=== PATIENT | male | born 1980 | race Caucasian/White ===

== ENCOUNTER 2017-09-11 21:23 | Emergency (ER) | payer OTHER ==
--- NOTE | 2017-09-11 22:03 | ER ---
Nurse's Notes [facility] Name: Aime Robbins Age: 37 yrs Sex: Male : 1980 Arrival Date: 09/11/2017 Time: 21:23 Bed 30 Private MD: Diagnosis: Encounter for screening, unspecified Presentation: 09/11 21:29 Presenting complaint: Patient states: States waking up while sleeping, coughed and felt lp1 tightness to lower left side of back. Transition of care: patient was not received from another setting of care. Onset of symptoms was September 11, 2017 at 18:30. Care prior to arrival: None. 21:29 Method Of Arrival: Wheelchair lp1 21:29 Acuity: DADA 4 lp1 Historical: - Allergies: 21:31 No Known Allergies; lp1 - Home Meds: 21:31 lisinopril 20 mg Oral tab 1 tab once daily [Active]; hydrochlorothiazide 50 mg Oral tab lp1 1 tab 2 times per day [Active]; - PMHx: 21:31 Hypertension; lp1 - PSHx: 21:31 None; lp1 - Immunization history:: Adult Immunizations up to date. - Social history:: Smoking status: Patient uses tobacco products, smokes one-half pack cigarettes per day. Screenin:31 Abuse screen: Denies threats or abuse. Denies injuries from another. Nutritional lp1 screening: No deficits noted. Tuberculosis screening: No symptoms or risk factors identified. Fall Risk None identified. Assessment: 21:45 General: Appears uncomfortable, well groomed, well developed, well nourished, Behavior tl3 is calm, cooperative, appropriate for age. Pain: Complains of pain in left low back Pain currently is 10 out of 10 on a pain scale. Quality of pain is described as sharp. Neuro: Level of Consciousness is awake, alert, obeys commands, Oriented to person, place, time, situation, Appropriate for age. Cardiovascular: Heart tones S1 S2 present Capillary refill < 3 seconds in bilateral fingers. Respiratory: Airway is patent Trachea midline Respiratory effort is even, unlabored, Respiratory pattern is regular, symmetrical, Breath sounds are clear bilaterally. GI: No signs and/or symptoms were reported involving the gastrointestinal system. : No signs and/or symptoms were reported regarding the genitourinary system. EENT: No signs and/or symptoms were reported regarding the EENT system. Derm: No signs and/or symptoms reported regarding the dermatologic system. Musculoskeletal: No signs and/or symptoms reported regarding the musculoskeletal system. Vital Signs: 21:30 BP 158 / 117; Pulse 77; Resp 18; Temp 97.9(O); Pulse Ox 98% on R/A; Weight 154.22 kg; lp1 Height 6 ft. 3 in. (190.50 cm); Pain 9/10; 21:30 Body Mass Index 42.50 (154.22 kg, 190.50 cm) lp1 ED Course: 21:23 Patient arrived in ED. ds1 21:30 Triage completed. lp1 21:30 Arm band placed on right wrist. lp1 21:32 Charlotte Garcia RN is Primary Nurse. tl3 21:33 Jose Blake MD is Attending Physician. gs 21:45 Patient has correct armband on for positive identification. Bed in low position. Adult tl3 w/ patient. Warm blanket given. 21:45 No provider procedures requiring assistance completed. tl3 Administered Medications: No medications were administered Outcome: 22:02 Discharge ordered by . gs 22:12 Patient left the ED. tl3 Signatures: Jennifer Dodd ds1 Kasandra Yanez RN RN lp1 Jose Blake MD MD Charlotte Garcia RN RN tl3
--- NOTE | 2017-09-11 22:03 | EDPHYS ---
Physician Documentation [facility] Name: Aime Robbins Age: 37 yrs Sex: Male : 1980 Arrival Date: 09/11/2017 Time: 21:23 Bed 30 Private MD: ED Physician Jose Blake HPI: 09/11 21:59 This 37 yrs old Male presents to ER via Wheelchair with complaints of Back gs Pain. 21:59 The patient presents with pain that is acute. The symptoms are located in the left low gs back. Onset: The symptoms/episode began/occurred today. The pain does not radiate. Associated signs and symptoms: Pertinent negatives: abdominal pain, chest pain, constipation, dysuria, hematuria, incontinence, tingling, urinary retention. Modifying factors: the patient symptoms are aggravated by bending, movement. Severity of symptoms: At their worst the symptoms were moderate, in the emergency department the symptoms are unchanged. The patient has experienced similar episodes in the past, multiple times, and the symptoms today are exactly the same, last week went away, was told by pcp before to take antiinflammatories. Historical: - Allergies: 21:31 No Known Allergies; lp1 - Home Meds: 21:31 lisinopril 20 mg Oral tab 1 tab once daily [Active]; hydrochlorothiazide 50 mg Oral tab lp1 1 tab 2 times per day [Active]; - PMHx: 21:31 Hypertension; lp1 - PSHx: 21:31 None; lp1 - Immunization history:: Adult Immunizations up to date. - Social history:: Smoking status: Patient uses tobacco products, smokes one-half pack cigarettes per day. ROS: 21:59 All other systems are negative. gs Exam: 21:59 Head/Face: Normocephalic, atraumatic. Eyes: Pupils equal round and reactive to light, gs extra-ocular motions intact. Lids and lashes normal. Conjunctiva and sclera are non-icteric and not injected. Cornea within normal limits. Periorbital areas with no swelling, redness, or edema. ENT: Nares patent. No nasal discharge, no septal abnormalities noted. Tympanic membranes are normal and external auditory canals are clear. Oropharynx with no redness, swelling, or masses, exudates, or evidence of obstruction, uvula midline. Mucous membranes moist. Neck: Trachea midline, no thyromegaly or masses palpated, and no cervical lymphadenopathy. Supple, full range of motion without nuchal rigidity, or vertebral point tenderness. No Meningismus. Chest/axilla: Normal chest wall appearance and motion. Nontender with no deformity. No lesions are appreciated. Cardiovascular: Regular rate and rhythm with a normal S1 and S2. No gallops, murmurs, or rubs. Normal PMI, no JVD. No pulse deficits. Respiratory: Lungs have equal breath sounds bilaterally, clear to auscultation and percussion. No rales, rhonchi or wheezes noted. No increased work of breathing, no retractions or nasal flaring. Abdomen/GI: Soft, non-tender, with normal bowel sounds. No distension or tympany. No guarding or rebound. No evidence of tenderness throughout. Skin: Warm, dry with normal turgor. Normal color with no rashes, no lesions, and no evidence of cellulitis. MS/ Extremity: Pulses equal, no cyanosis. Neurovascular intact. Full, normal range of motion. 21:59 Constitutional: The patient appears alert, awake. 21:59 Back: pain, that is moderate, of the left low back, Straight leg raises: left lower extremity illicits pain, at 30 degrees. 21:59 Neuro: Motor: no acute changes, strength is 5/5 in all extremities, Sensation: no obvious gross deficits, numbness, is not appreciated, Deep tendon reflexes are 2+ (normal) in the right patellar, right Achilles, left patellar and left Achilles. Vital Signs: 21:30 BP 158 / 117; Pulse 77; Resp 18; Temp 97.9(O); Pulse Ox 98% on R/A; Weight 154.22 kg; lp1 Height 6 ft. 3 in. (190.50 cm); Pain 9/10; 21:30 Body Mass Index 42.50 (154.22 kg, 190.50 cm) lp1 MDM: 21:47 Patient medically screened. gs 21:59 Differential diagnosis: chronic back pain, Ligament Injury ruptured disc. Data gs reviewed: vital signs, nurses notes. Response to treatment: There is no appreciated change of the patient's symptoms at this time. Administered Medications: No medications were administered Disposition: 09/11/17 22:02 Discharged to Home. Impression: Encounter for screening, unspecified. - Condition is Stable. - Discharge Instructions: Back Pain, Adult, [id number]. - Medication Reconciliation Form, Thank You Letter, Antibiotic Education, Prescription Opioid Use form. - Follow up: Private Physician; When: 2 - 3 days; Reason: Re-evaluation by your physician. Signatures: Kasandra Yanez, RN RN lp1 Jose Blake MD MD gs Charlotte Garcia RN RN tl3
[2017-09-11 22:21] VITALS: BP 158/117; TEMP 97.9; O2SAT 98
== END 2017-09-11 22:12 | disposition home or self-care (01) ==
LOC: ER 21:23
DX: Z13.9 Encounter for screening, unspecified (principal); I10 Essential (primary) hypertension; F17.210 Nicotine dependence, cigarettes, uncomplicated
CPT/HCPCS: 99281

== ENCOUNTER 2019-02-04 21:54 | Emergency (ER) | payer OTHER ==
[2019-02-05 01:51] LABS: Absolute Lymphocytes (CBC) 2.2 K/uL (0.7-4.9); Basophils % 1.3 % (0-1.3); Hematocrit 48.5 % (39.6-49.0); Lymphocytes % 21.7 % (15.3-44.8); MPV 9.5 fL (7.6-11.3); RBC Red Blood Cell Count 5.52 M/uL (4.33-5.43)
[2019-02-05 02:05] LABS: BUN Blood Urea Nitrogen 16 mg/dL (7-18); Bicarbonate 26 mmol/L (21-32); Glucose Level 155 mg/dL (74-106); Potassium 3.9 mmol/L (3.5-5.1); Sodium Level 143 mmol/L (136-145); Troponin (Emerg Dept Use Only) < 0.02 ng/mL (0.0-0.045)
--- NOTE | 2019-02-05 02:52 | ER ---
Nurse's Notes [facility] Name: Aime Robbins Age: 38 yrs Sex: Male : 1980 Arrival Date: 02/04/2019 Time: 21:55 Bed 14 Private MD: Diagnosis: Pain in left upper arm Presentation: 02/04 22:00 Presenting complaint: Patient states: "My left arm started hurting me earlier. My chest aj1 was hurting a few days ago, but it quit. Tonight when I went to work my left arm started hurting." Denies nausea, palpitations, shortness of breath. Denies injury to left arm. Transition of care: patient was not received from another setting of care. Onset of symptoms was February 04, 2019 at 18:00. Risk Assessment: Do you want to hurt yourself or someone else? Patient reports no desire to harm self or others. Initial Sepsis Screen: Does the patient meet any 2 criteria? No. Patient's initial sepsis screen is negative. Does the patient have a suspected source of infection? No. Patient's initial sepsis screen is negative. Care prior to arrival: None. 22:00 Method Of Arrival: Ambulatory aj1 22:00 Acuity: DADA 3 aj1 Triage Assessment: 22:02 General: Appears in no apparent distress. uncomfortable, Behavior is calm, cooperative, aj1 appropriate for age. Pain: Complains of pain in left arm Pain currently is 5 out of 10 on a pain scale. Neuro: Level of Consciousness is awake, alert, obeys commands. Cardiovascular: Patient's skin is warm and dry. Respiratory: Airway is patent Respiratory effort is even, unlabored, Respiratory pattern is regular, symmetrical. Historical: - Allergies: 22:02 No Known Allergies; aj1 - Home Meds: 22:02 lisinopril 20 mg Oral tab 1 tab once daily [Active]; aj1 - PMHx: 22:02 Hypertension; aj1 - Immunization history:: Flu vaccine is not up to date. - Social history:: Smoking status: Patient uses tobacco products, smokes one-half pack cigarettes per day. - Ebola Screening: : Patient denies travel to an Ebola-affected area in the 21 days before illness onset. Screenin:26 Abuse screen: Denies threats or abuse. Denies injuries from another. Nutritional mg2 screening: No deficits noted. Tuberculosis screening: No symptoms or risk factors identified. Fall Risk None identified. Assessment: 22:25 General: Appears in no apparent distress. comfortable, Behavior is calm, cooperative. mg2 Pain: Complains of pain in left arm Pain does not radiate. Pain currently is 4 out of 10 on a pain scale. Quality of pain is described as aching, Pain began gradually, 2-3 days ago. Is intermittent. Neuro: Level of Consciousness is awake, alert, obeys commands, Oriented to person, place, time, situation. Cardiovascular: Capillary refill < 3 seconds Patient's skin is warm and dry. Respiratory: Airway is patent Respiratory effort is even, unlabored, Respiratory pattern is regular, symmetrical. GI: No signs and/or symptoms were reported involving the gastrointestinal system. : No signs and/or symptoms were reported regarding the genitourinary system. EENT: No signs and/or symptoms were reported regarding the EENT system. Derm: Skin is intact, is healthy with good turgor, Skin is pink, warm \\T\\ dry. normal. Musculoskeletal: Circulation, motion, and sensation intact. Capillary refill < 3 seconds, Reports pain in left arm. 23:40 Reassessment: No changes from previously documented assessment. Patient and/or family tr5 updated on plan of care and expected duration. Pain level reassessed. Patient is alert, oriented x 3, equal unlabored respirations, skin warm/dry/pink. 0830 00:30 Reassessment: Patient appears in no apparent distress at this time. Patient and/or tr5 family updated on plan of care and expected duration. Pain level reassessed. Patient is alert, oriented x 3, equal unlabored respirations, skin warm/dry/pink. 01:37 Reassessment: Patient and/or family updated on plan of care and expected duration. Pain tr5 level reassessed. Patient is alert, oriented x 3, equal unlabored respirations, skin warm/dry/pink. Patient denies pain at this time. 02:31 Reassessment: Patient appears in no apparent distress at this time. Patient is alert, aa1 oriented x 3, equal unlabored respirations, skin warm/dry/pink. Discussed d/c \\T\\ f/u instructions with pt; denies questions or concerns at this time. Ambulatory to lobby with steady gait Patient states feeling better. Vital Signs: 02/04 22:02 BP 160 / 97; Pulse 90; Resp 18; Temp 98.3; Pulse Ox 98% on R/A; Weight 154.22 kg (R); aj1 Height 6 ft. 3 in. (190.50 cm) (R); Pain 6/10; 22:26 BP 144 / 95; Pulse 96; Resp 18; Pulse Ox 97% on R/A; mg2 23:40 BP 136 / 100; Pulse 90; Resp 16; Pulse Ox 95% on R/A; tr5 02/05 00:30 BP 143 / 87; Pulse 82; Resp 16; Pulse Ox 96% on R/A; tr5 01:37 BP 133 / 94; Pulse 78; Resp 16; Pulse Ox 99% on R/A; tr5 02:31 BP 136 / 90; Pulse 77; Resp 16; Temp 98.1; Pulse Ox 98% on R/A; Pain 3/10; aa1 02/04 22:02 Body Mass Index 42.50 (154.22 kg, 190.50 cm) aj1 ED Course: 02/04 21:55 Patient arrived in ED. cl3 22:01 Triage completed. aj1 22:02 Arm band placed on Patient placed in an exam room. aj1 22:20 Miguel Pham RN is Primary Nurse. mg2 22:26 Patient has correct armband on for positive identification. mg2 22:26 No provider procedures requiring assistance completed. mg2 22:56 Jose Blake MD is Attending Physician. 02/05 02:31 IV discontinued, intact, bleeding controlled, No redness/swelling at site. Pressure aa1 dressing applied. 08: XRAY CXR (1 view) In Process Unspecified. EDMS Administered Medications: No medications were administered Outcome: 02:17 Discharge ordered by . gs 02:31 Discharged to home ambulatory. aa1 02:31 Condition: good 02:31 Discharge instructions given to patient, Instructed on discharge instructions, follow up and referral plans. medication usage, Demonstrated understanding of instructions, follow-up care, medications, Prescriptions given X 1. 02:36 Patient left the ED. aa1 Signatures: Dispatcher [employer] EDMS Sharri Rodas RN RN aj Sruthi Hsieh RN RN aa1 Blake, Jose, Migeul Reid MD, RN RN mg2 Jb Scott, RN RN tr5 Shukri Hill cl3
--- NOTE | 2019-02-05 02:54 | EDPHYS ---
Physician Documentation [facility] Name: Aime Robbins Age: 38 yrs Sex: Male : 1980 Arrival Date: 02/04/2019 Time: 21:55 Bed 14 Private MD: ED Physician Jose Blake HPI: 02/05 02:12 This 38 yrs old Male presents to ER via Ambulatory with complaints of Arm gs Pain. 02:12 The patient or guardian complains of pain, that is acute. The complaints affect the gs left bicep. Onset: The symptoms/episode began/occurred last night. Modifying factors: the symptoms are aggravated by movement, lifting weight. Associated signs and symptoms: Pertinent negatives: vomiting, sob. Severity of symptoms: At their worst the symptoms were moderate, in the emergency department the symptoms have resolved, and did so just prior to arrival. The patient has experienced similar episodes in the past, a few times. Historical: - Allergies: 02/04 22:02 No Known Allergies; aj1 - Home Meds: 22:02 lisinopril 20 mg Oral tab 1 tab once daily [Active]; aj1 - PMHx: 22:02 Hypertension; aj1 - Immunization history:: Flu vaccine is not up to date. - Social history:: Smoking status: Patient uses tobacco products, smokes one-half pack cigarettes per day. - Ebola Screening: : Patient denies travel to an Ebola-affected area in the 21 days before illness onset. ROS: 02/05 02:12 Cardiovascular: Positive for chest pain, EARLIER IN WEEK. gs Respiratory: Negative for pleurisy, shortness of breath. All other systems are negative. Exam: 02:12 Head/Face: Normocephalic, atraumatic. Eyes: Pupils equal round and reactive to light, gs extra-ocular motions intact. Lids and lashes normal. Conjunctiva and sclera are non-icteric and not injected. Cornea within normal limits. Periorbital areas with no swelling, redness, or edema. ENT: Nares patent. No nasal discharge, no septal abnormalities noted. Tympanic membranes are normal and external auditory canals are clear. Oropharynx with no redness, swelling, or masses, exudates, or evidence of obstruction, uvula midline. Mucous membranes moist. Neck: Trachea midline, no thyromegaly or masses palpated, and no cervical lymphadenopathy. Supple, full range of motion without nuchal rigidity, or vertebral point tenderness. No Meningismus. Chest/axilla: Normal chest wall appearance and motion. Nontender with no deformity. No lesions are appreciated. Cardiovascular: Regular rate and rhythm with a normal S1 and S2. No gallops, murmurs, or rubs. Normal PMI, no JVD. No pulse deficits. Respiratory: Lungs have equal breath sounds bilaterally, clear to auscultation and percussion. No rales, rhonchi or wheezes noted. No increased work of breathing, no retractions or nasal flaring. Abdomen/GI: Soft, non-tender, with normal bowel sounds. No distension or tympany. No guarding or rebound. No evidence of tenderness throughout. Back: No spinal tenderness. No costovertebral tenderness. Full range of motion. Skin: Warm, dry with normal turgor. Normal color with no rashes, no lesions, and no evidence of cellulitis. MS/ Extremity: Pulses equal, no cyanosis. Neurovascular intact. Full, normal range of motion. Neuro: Awake and alert, GCS 15, oriented to person, place, time, and situation. Cranial nerves II-XII grossly intact. Motor strength 5/5 in all extremities. Sensory grossly intact. Cerebellar exam normal. Normal gait. 02:12 Constitutional: The patient appears alert, awake. 02:12 ECG was reviewed by the Attending Physician. Vital Signs: 02/04 22:02 BP 160 / 97; Pulse 90; Resp 18; Temp 98.3; Pulse Ox 98% on R/A; Weight 154.22 kg (R); aj1 Height 6 ft. 3 in. (190.50 cm) (R); Pain 6/10; 22:26 BP 144 / 95; Pulse 96; Resp 18; Pulse Ox 97% on R/A; mg2 23:40 BP 136 / 100; Pulse 90; Resp 16; Pulse Ox 95% on R/A; tr5 02/05 00:30 BP 143 / 87; Pulse 82; Resp 16; Pulse Ox 96% on R/A; tr5 01:37 BP 133 / 94; Pulse 78; Resp 16; Pulse Ox 99% on R/A; tr5 02:31 BP 136 / 90; Pulse 77; Resp 16; Temp 98.1; Pulse Ox 98% on R/A; Pain 3/10; aa1 02/04 22:02 Body Mass Index 42.50 (154.22 kg, 190.50 cm) aj1 MDM: 02/04 23:34 Patient medically screened. 02/05 02:12 Differential diagnosis: tendonitis, STRAIN,CAD. Data reviewed: vital signs, nurses gs notes, lab test result(s), EKG, radiologic studies. Counseling: I had a detailed discussion with the patient and/or guardian regarding: the historical points, exam findings, and any diagnostic results supporting the discharge/admit diagnosis, the presence of at least one elevated blood pressure reading (>120/80) during this emergency department visit, lab results, radiology results, the need for outpatient follow up. Response to treatment: the patient's symptoms have resolved after treatment, the patient's condition has returned to base line. Special discussion: I have referred the patient to see his PCP for further evaluation of high blood pressure. 02/04 23:36 Order name: CBC with Diff 02/04 23:36 Order name: Basic Metabolic Panel 02/04 23:36 Order name: Troponin (emerg Dept Use Only) 02/05 01:54 Order name: CBC with Automated Diff; Complete Time: 02:12 EDMS 02/05 02:06 Order name: Basic Metabolic Panel; Complete Time: 02:12 EDMS 02/05 02:06 Order name: Troponin (Emerg Dept Use Only); Complete Time: 02:12 EDMS 02/04 22:24 Order name: EKG - Nurse/Tech; Complete Time: 22:24 mg2 02/04 23:36 Order name: XRAY CXR (1 view) EC:12 Rate is 84 beats/min. Rhythm is regular. GA interval is normal. QRS interval is normal. gs T waves are Normal. No ST changes noted. Clinical impression: Abnormal EKG without significant change. Interpreted by me. Administered Medications: No medications were administered Disposition: 02/05/19 02:17 Discharged to Home. Impression: Pain in left upper arm. - Condition is Stable. - Discharge Instructions: Musculoskeletal Pain, Managing Your Hypertension. - Prescriptions for Naprosyn 500 mg Oral Tablet - take 1 tablet by ORAL route 2 times per day As needed take with food; 30 tablet. - Medication Reconciliation Form, Thank You Letter, Antibiotic Education, Prescription Opioid Use form. - Follow up: Private Physician; When: 2 - 3 days; Reason: Re-evaluation by your physician. Signatures: Dispatcher [employer] EDSharri Austin RN RN aj1 Sruthi Hsieh RN RN aa1 Jose Blake MD MD gs Miguel Pham RN RN mg2 Corrections: (The following items were deleted from the chart) 02:36 02:17 02/05/2019 02:17 Discharged to Home. Impression: Pain in left upper arm. aa1 Condition is Stable. Forms are Medication Reconciliation Form, Thank You Letter, Antibiotic Education, Prescription Opioid Use. Follow up: Private Physician; When: 2 - 3 days; Reason: Re-evaluation by your physician. gs
[2019-02-05 04:09] VITALS: BP 136/90; TEMP 98.1; O2SAT 98
--- NOTE | 2019-02-05 08:30 | RAD REPORT ---
EXAM DESCRIPTION: RAD - Chest Single View - 02/05/2019 12:01 am CLINICAL HISTORY: CHEST PAIN Chest pain. COMPARISON: Chest Single View dated 02/29/2016 FINDINGS: Portable technique limits examination quality. The lungs are grossly clear. The heart is mildly prominent in size. No displaced fractures.
--- NOTE | 2019-02-07 08:13 | EKG ---
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
== END 2019-02-05 02:36 | disposition home or self-care (01) ==
LOC: ER 21:54
DX: M79.622 Pain in left upper arm (principal); I10 Essential (primary) hypertension; F17.210 Nicotine dependence, cigarettes, uncomplicated
CPT/HCPCS: 36415; 71045; 80048; 84484; 85025; 93005; 99283

== ENCOUNTER 2019-10-20 09:48 | Emergency (ER) | payer OTHER ==
[2019-10-20] MEDS ORDERED: ASPIRIN 81 MG CHEWABLE TABLET ONE (10:36)
[2019-10-20] MEDS ORDERED: NITROGLYCERIN 0.4 MG/TAB SL ONE (10:36)
[2019-10-20 11:22] LABS: Protime INR 0.96
[2019-10-20 11:38] LABS: ALT/SGPT 50 U/L (12-78); AST/SGOT 21 U/L (15-37); Albumin 3.9 g/dL (3.4-5.0); Alkaline Phosphatase 95 U/L (45-117); BUN Blood Urea Nitrogen 14 mg/dL (7-18); Bicarbonate 27 mmol/L (21-32); Bilirubin Direct 0.1 mg/dL (0-0.2); Bilirubin Total 0.5 mg/dL (0.2-1.0); Glucose Level 161 mg/dL (74-106); Magnesium 2.3 mg/dL (1.8-2.4); NT PRO-BNP 434 pg/mL (<125); Potassium 3.4 mmol/L (3.5-5.1); Protein, Total 7.5 g/dL (6.4-8.2); Sodium Level 142 mmol/L (136-145); Troponin (Emerg Dept Use Only) < 0.02 ng/mL (0.0-0.045)
[2019-10-20 11:39] LABS: Basophils % 1.3 % (0-1.3); Hematocrit 47.3 % (39.6-49.0); Lymphocytes % 19.3 % (15.3-44.8); MPV 9.6 fL (7.6-11.3)
[2019-10-20] MEDS ORDERED: FENTANYL CITR 100 MCG/2 ML ONE (11:45)
[2019-10-20] MEDS ORDERED: HYDRALAZINE HCL 20 MG/ML VIAL ONE (11:45)
--- NOTE | 2019-10-20 11:45 | RAD REPORT ---
EXAM DESCRIPTION: Geovanna Single View10/20/2019 10:42 am CLINICAL HISTORY: Chest pain COMPARISON: 2019 FINDINGS: The lungs appear clear of acute infiltrate. The heart is normal size IMPRESSION: No acute abnormalities displayed
--- NOTE | 2019-10-20 13:35 | ER ---
Nurse's Notes [facility] Name: Aime Robbins Age: 39 yrs Sex: Male : 1980 Arrival Date: 10/20/2019 Time: 09:53 Bed 19 Private MD: Diagnosis: Pain in left arm;Essential (primary) hypertension Presentation: 10/19 10:01 Chief complaint: Patient states: L arm pain that began 1 hour ago. Worse with ROM. ss Denies CP or injury. Has been out of BP medication for months. Coronavirus screen: Proceed with normal triage. Patient denies a cough. Patient denies shortness of breath or difficulty breathing. Patient denies measured and/or subjective temperature greater than 100.4F prior to today's visit. Patient denies travel on a cruise ship or to a country the [facility] currently lists as an affected area. Patient denies contact with known and/or suspected case of COVID-19. Ebola Screen: Patient denies exposure to infectious person. Patient denies travel to an Ebola-affected area in the 21 days before illness onset. Initial Sepsis Screen: Does the patient meet any 2 criteria? No. Patient's initial sepsis screen is negative. Does the patient have a suspected source of infection? No. Patient's initial sepsis screen is negative. Risk Assessment: Do you want to hurt yourself or someone else? Patient reports no desire to harm self or others. Onset of symptoms was October 20, 2019. 10:01 Method Of Arrival: Ambulatory ss 10:01 Acuity: DADA 3 ss Historical: - Allergies: 10:03 No Known Allergies; ss - PMHx: 10:03 Hypertension; ss - PSHx: 10:03 None; ss - Immunization history:: Adult Immunizations unknown. - Social history:: Smoking status: Patient reports the use of cigarette tobacco products, smokes one-half pack cigarettes per day. Screenin:58 Abuse screen: Denies threats or abuse. Nutritional screening: No deficits noted. Tuberculosis screening: No symptoms or risk factors identified. Fall Risk None identified. Assessment: 10:15 General: Appears in no apparent distress. Behavior is calm, cooperative. Pain: Complains of pain in left arm Pain does not radiate. Neuro: Level of Consciousness is awake, alert, Oriented to person, place, time, situation. Cardiovascular: Denies chest pain, Heart tones S1 S2 present Capillary refill < 3 seconds Patient's skin is warm and dry. Pulses are palpable in right radial artery and left radial artery Rhythm is sinus rhythm. Respiratory: Airway is patent Respiratory effort is even, unlabored, Respiratory pattern is regular, symmetrical, Breath sounds are clear bilaterally. GI: Bowel sounds present X 4 quads. : No signs and/or symptoms were reported regarding the genitourinary system. EENT: No signs and/or symptoms were reported regarding the EENT system. Derm: No signs and/or symptoms reported regarding the dermatologic system. Musculoskeletal: No signs and/or symptoms reported regarding the musculoskeletal system. 10:30 Reassessment: Pt given nitroglycerin 0.4 tab. Pt states no change in pain but he does ah have a little headache now. 11:50 Reassessment: Patient and/or family updated on plan of care and expected duration. Pain ah level reassessed. Pt given IV meds for pain and blood pressure. 12:45 Reassessment: Pt states that the pain is a little better at this time. Vital Signs: 10:01 BP 198 / 123; Pulse 107; Resp 18; Temp 99.0(TE); Pulse Ox 97% on R/A; Weight 154.22 kg; Height 6 ft. 3 in. (190.50 cm); Pain 6/10; 11:30 BP 189 / 103; Pulse 97; Resp 20; Pulse Ox 97% ; ah 11:45 BP 163 / 107; Pulse 93; Resp 19; Pulse Ox 97% ; ah 12:00 BP 180 / 104; Pulse 95; Resp 27; Pulse Ox 96% ; 12:15 BP 168 / 102; Pulse 92; Resp 28; Pulse Ox 96% ; ah 13:00 BP 186 / 123; Pulse 94; Resp 18; Pulse Ox 96% ; 10:01 Body Mass Index 42.50 (154.22 kg, 190.50 cm) ED Course: 09:53 Patient arrived in ED. mr 10:03 Triage completed. 10:03 Arm band placed on right wrist. 10:05 Octaviano Bonner PA is PHCP. jr8 10:05 Calos Govea MD is Attending Physician. 8 10:05 Albertina Moses, RN is Primary Nurse. 10:20 Inserted saline lock: 20 gauge in right antecubital area, using aseptic technique. 10:42 XRAY Chest (1 view) In Process Unspecified. EDMS 11:58 Patient has correct armband on for positive identification. Bed in low position. Call light in reach. Side rails up X 1. 13:46 No provider procedures requiring assistance completed. 13:47 IV discontinued, intact, bleeding controlled, No redness/swelling at site. Pressure dressing applied. Administered Medications: 10:30 Drug: Aspirin Chewable Tablet 324 mg Route: PO; 14:12 Follow up: Response: No adverse reaction 10:31 Drug: Nitroglycerin 0.4 mg Route: Sublingual; 14:12 Follow up: Response: No adverse reaction 11:48 Drug: hydrALAZINE 10 mg Route: IV; Rate: calculated rate; Site: right antecubital; 14:11 Follow up: Response: No adverse reaction; IV Status: Completed infusion 11:48 Drug: fentaNYL (PF) 50 mcg Route: IVP; Site: right antecubital; 14:11 Follow up: Response: No adverse reaction Outcome: 13:34 Discharge ordered by MD. hernandez 13:48 Discharged to home ambulatory. 13:48 Condition: good 13:48 Discharge instructions given to patient, Instructed on discharge instructions, Demonstrated understanding of instructions, follow-up care. 14:14 Patient left the ED. Signatures: Dispatcher [employer] [facility] Roland Aspen mr Tmamy Stockton RN RN Octaviano Bonner PA PA jr8 Harris, Amy, RN RN
--- NOTE | 2019-10-20 13:35 | EDPHYS ---
Physician Documentation [facility] Name: Aime Robbins Age: 39 yrs Sex: Male : 1980 Arrival Date: 10/20/2019 Time: 09:53 Bed 19 Private MD: ED Physician Calos Govea HPI: 10/19 10:53 This 39 yrs old Male presents to ER via Ambulatory with complaints of Arm jr8 Pain. 10:53 The patient or guardian complains of pain, that is acute. The complaints affect the jr8 left arm. Onset: The symptoms/episode began/occurred acutely, this morning. Treatment prior to arrival includes: no previous treatment. Modifying factors: The symptoms are alleviated by nothing. the symptoms are aggravated by movement. Associated signs and symptoms: The patient has no apparent associated signs or symptoms. Severity of symptoms: At their worst the symptoms were moderate, in the emergency department the symptoms are unchanged. The patient has not experienced similar symptoms in the past. The patient has not recently seen a physician. Patient stated that he got home this morning from work and was laying down ready to go to bed. Stated that his left arm started to hurt. Denies trauma or overuse of arm. Stated that it starts from shoulder and goes to elbow. Feels like a deep pain. Denies any other symptoms. Patient hypertensive upon arrival. Stated that he is in between physicians and has been out of his meds . Historical: - Allergies: 10:03 No Known Allergies; ss - PMHx: 10:03 Hypertension; ss - PSHx: 10:03 None; ss - Immunization history:: Adult Immunizations unknown. - Social history:: Smoking status: Patient reports the use of cigarette tobacco products, smokes one-half pack cigarettes per day. ROS: 12:20 Eyes: Negative for injury, pain, redness, and discharge, ENT: Negative for injury, jr8 pain, and discharge, Neck: Negative for injury, pain, and swelling, Cardiovascular: Negative for chest pain, palpitations, and edema, Respiratory: Negative for shortness of breath, cough, wheezing, and pleuritic chest pain, Abdomen/GI: Negative for abdominal pain, nausea, vomiting, diarrhea, and constipation, Back: Negative for injury and pain, Skin: Negative for injury, rash, and discoloration, Neuro: Negative for headache, weakness, numbness, tingling, and seizure. 12:20 MS/extremity: Positive for pain, of the left arm. Exam: 12:20 Eyes: Pupils equal round and reactive to light, extra-ocular motions intact. Lids and jr8 lashes normal. Conjunctiva and sclera are non-icteric and not injected. Cornea within normal limits. Periorbital areas with no swelling, redness, or edema. ENT: Nares patent. No nasal discharge, no septal abnormalities noted. Tympanic membranes are normal and external auditory canals are clear. Oropharynx with no redness, swelling, or masses, exudates, or evidence of obstruction, uvula midline. Mucous membranes moist. Neck: Trachea midline, no thyromegaly or masses palpated, and no cervical lymphadenopathy. Supple, full range of motion without nuchal rigidity, or vertebral point tenderness. No Meningismus. Cardiovascular: Regular rate and rhythm with a normal S1 and S2. No gallops, murmurs, or rubs. Normal PMI, no JVD. No pulse deficits. Respiratory: Lungs have equal breath sounds bilaterally, clear to auscultation and percussion. No rales, rhonchi or wheezes noted. No increased work of breathing, no retractions or nasal flaring. Abdomen/GI: Soft, non-tender, with normal bowel sounds. No distension or tympany. No guarding or rebound. No evidence of tenderness throughout. Back: No spinal tenderness. No costovertebral tenderness. Full range of motion. Skin: Warm, dry with normal turgor. Normal color with no rashes, no lesions, and no evidence of cellulitis. Neuro: Awake and alert, GCS 15, oriented to person, place, time, and situation. Cranial nerves II-XII grossly intact. Motor strength 5/5 in all extremities. Sensory grossly intact. Cerebellar exam normal. Normal gait. 12:20 Musculoskeletal/extremity: Extremities: grossly normal except: noted in the left arm: No reproducible palpated pain to left arm or shoulder. Mild pain with abduction at 90 degrees. No external signs of trauma noted. No axillary lymphadenopathy appreciated. Pulses intact 2+ radial bilaterally with normal sensation. Rest of extremities unremarkable . 12:43 ECG was reviewed by the Attending Physician. [facility] Vital Signs: 10:01 BP 198 / 123; Pulse 107; Resp 18; Temp 99.0(TE); Pulse Ox 97% on R/A; Weight 154.22 kg; ss Height 6 ft. 3 in. (190.50 cm); Pain 6/10; 11:30 BP 189 / 103; Pulse 97; Resp 20; Pulse Ox 97% ; ah 11:45 BP 163 / 107; Pulse 93; Resp 19; Pulse Ox 97% ; ah 12:00 BP 180 / 104; Pulse 95; Resp 27; Pulse Ox 96% ; ah 12:15 BP 168 / 102; Pulse 92; Resp 28; Pulse Ox 96% ; ah 13:00 BP 186 / 123; Pulse 94; Resp 18; Pulse Ox 96% ; ah 10:01 Body Mass Index 42.50 (154.22 kg, 190.50 cm) ss MDM: 10:05 Patient medically screened. jr8 13:32 Data reviewed: vital signs, nurses notes, lab test result(s), EKG, radiologic studies, jr8 plain films. Data interpreted: Pulse oximetry: on room air is 96 %. Interpretation: normal. Counseling: I had a detailed discussion with the patient and/or guardian regarding: the historical points, exam findings, and any diagnostic results supporting the discharge/admit diagnosis, lab results, radiology results, the need for outpatient follow up, a family practitioner, to return to the emergency department if symptoms worsen or persist or if there are any questions or concerns that arise at home. Response to treatment: the patient's symptoms have markedly improved after treatment. ED course: No acute cardiac findings noted at this time that would be causing patients arm pain. Feeling better after medications given. BP improved. Will start patient back on his medications. Recommended close f/u with physician soon. If worse to come back. Patient good with this . 10/19 10:25 Order name: Basic Metabolic Panel; Complete Time: 11:50 [facility] 10/19 10:25 Order name: CBC with Diff; Complete Time: : [facility] 10/19 10:25 Order name: LFT's; Complete Time: : [facility] 10/19 10:25 Order name: Magnesium; Complete Time: [facility] 10/19 10:25 Order name: NT PRO-BNP; Complete Time: 11:50 [facility] 10/19 10:25 Order name: PT-INR; Complete Time: 11: [facility] 10/19 10:25 Order name: Troponin (emerg Dept Use Only); Complete Time: 11:50 10/19 10:25 Order name: XRAY Chest (1 view); Complete Time: 11:50 10/19 10:25 Order name: EKG; Complete Time: 10:10/19 12:33 Order name: Troponin (emerg Dept Use Only); Complete Time: 13:15 10/19 10:25 Order name: Cardiac monitoring; Complete Time: 14:10/19 10:25 Order name: EKG - Nurse/Tech; Complete Time: 14:10/19 10:25 Order name: IV Saline Lock; Complete Time: 14:10/19 10:25 Order name: Labs collected and sent; Complete Time: 14:10/19 10:25 Order name: O2 Per Protocol; Complete Time: 20:09 10/19 10:25 Order name: O2 Sat Monitoring; Complete Time: 14: EC:43 Rate is 103 beats/min. Rhythm is regular, Sinus tachycardia. QRS [place] is Normal. SD jr8 interval is normal at 142 msec. QRS interval is normal at 86 msec. QT interval is normal at 374 msec. Q waves are Present in leads III, V1. T waves are Inverted in leads I, II, III, aVL, aVF. Clinical impression: NSR w/ Non-specific ST/T Changes. Interpreted by me. Administered Medications: 10:30 Drug: Aspirin Chewable Tablet 324 mg Route: PO; 14:12 Follow up: Response: No adverse reaction 10:31 Drug: Nitroglycerin 0.4 mg Route: Sublingual; 14:12 Follow up: Response: No adverse reaction 11:48 Drug: hydrALAZINE 10 mg Route: IV; Rate: calculated rate; Site: right antecubital; 14:11 Follow up: Response: No adverse reaction; IV Status: Completed infusion 11:48 Drug: fentaNYL (PF) 50 mcg Route: IVP; Site: right antecubital; 14:11 Follow up: Response: No adverse reaction Disposition: 10/20/19 13:34 Discharged to Home. Impression: Pain in left arm, Essential (primary) hypertension. - Condition is Stable. - Discharge Instructions: Hypertension, Heart Disease Prevention, DASH Eating Plan, Managing Your Hypertension. - Prescriptions for Lisinopril- Hydrochlorothiazide 20-12.5 mg Oral Tablet - take 1 tablet by ORAL route once daily; 30 tablet. Metoprolol Tartrate 50 mg Oral Tablet - take 1 tablet by ORAL route 2 times per day take with meal; 60 tablet. - Medication Reconciliation Form, Thank You Letter, Antibiotic Education, Prescription Opioid Use, Work release form form. - Follow up: Private Physician; When: 5 - 6 days; Reason: Recheck today's complaints, Continuance of care, Re-evaluation by your physician. - Problem is new. - Symptoms have improved. Addendum: 10/22/2019 18:22 Co-signature as Attending Physician, Calos Govea MD. m a2 Signatures: Dispatcher [employer] EDMS Tammy Stockton RN RN Octaviano Bonner PA PA jr8 Calos Govea MD MD ma2 Albertina Moses RN RN Corrections: (The following items were deleted from the chart) 10/19 14:14 13:34 10/20/2019 13:34 Discharged to Home. Impression: Pain in left arm; Essential ah (primary) hypertension. Condition is Stable. Forms are Medication Reconciliation Form, Thank You Letter, Antibiotic Education, Prescription Opioid Use. Follow up: Private Physician; When: 5 - 6 days; Reason: Recheck today's complaints, Continuance of care, Re-evaluation by your physician. Problem is new. Symptoms have improved. jr8
[2019-10-20 15:09] VITALS: TEMP 99
[2019-10-20 15:13] VITALS: O2SAT 96
[2019-10-20 15:16] VITALS: BP 186/123
--- NOTE | 2019-10-21 11:16 | EKG ---
Test Date: 2019-10-20 Test Time: 10:43:27 Atm Manager: JEFFREY MEASUREMENT RESULTS: Intervals: Rate: 103 MT: 142 QRSD: 86 QT: 374 QTc: 489 [place]: P: 55 MT: 142 QRS: 12 T: 104 INTERPRETIVE STATEMENTS: Sinus tachycardia Moderate voltage criteria for LVH, may be normal variant Nonspecific T wave abnormality Abnormal ECG Compared to ECG 02/04/2019 22:11:28 T-wave abnormality now present Sinus rhythm no longer present Electronically Signed On 10-21-19 11:13:44 CDT by Cosmo Barker
== END 2019-10-20 14:14 | disposition home or self-care (01) ==
LOC: ER 09:48
DX: I10 Essential (primary) hypertension (principal); F17.210 Nicotine dependence, cigarettes, uncomplicated
CPT/HCPCS: 96365; 93005; 85025; 80048; 36415; 83735; 85610; 80076; 84484 ×2; 83880; 71045; 96375; 99284; 96366; J0360; J3010

== ENCOUNTER 2021-04-04 02:35 | Emergency (ER) | payer OTHER ==
[2021-04-04] MEDS ORDERED: NA CHLORIDE 0.9% 500 ML ONE (04:22)
[2021-04-04 06:06] LABS: ALT/SGPT 62 U/L (12-78); AST/SGOT 25 U/L (15-37); Albumin 3.9 g/dL (3.4-5.0); Alkaline Phosphatase 83 U/L (45-117); BUN Blood Urea Nitrogen 16 mg/dL (7-18); Bicarbonate 25 mmol/L (21-32); Bilirubin Direct 0.2 mg/dL (0-0.2); Bilirubin Total 0.6 mg/dL (0.2-1.0); Glucose Level 227 mg/dL (74-106); Lipase 165 U/L (73-393); Magnesium 2.4 mg/dL (1.8-2.4); NT PRO-BNP 77 pg/mL (<125); Potassium 3.5 mmol/L (3.5-5.1); Protein, Total 7.6 g/dL (6.4-8.2); Sodium Level 137 mmol/L (136-145); Troponin (Emerg Dept Use Only) < 0.02 ng/mL (0.0-0.045)
[2021-04-04 06:07] LABS: Protime INR 1.03
[2021-04-04 06:47] LABS: Absolute Lymphocytes (CBC) 2.5 K/uL (0.7-4.9); Basophils % 2.1 % (0-1.3); Hematocrit 43.7 % (39.6-49.0); Lymphocytes % 24.5 % (15.3-44.8); MPV 8.9 fL (7.6-11.3); RBC Red Blood Cell Count 5.05 M/uL (4.33-5.43)
[2021-04-04] MEDS ORDERED: CEFTRIAXONE 1000 MG/VIAL ONE (07:01)
--- NOTE | 2021-04-04 07:13 | EDPHYS ---
Physician Documentation [facility] Name: Aime Robbins Age: 41 yrs Sex: Male : 1980 Arrival Date: 04/04/2021 Time: 02:43 Bed 20 Private MD: ROSY Physician David Cleveland HPI: 04/04 03:39 This 41 yrs old Male presents to ER via Ambulatory with complaints of Bloody garo Stools. 03:39 This 41 yrs old Male presents to ER via Ambulatory with complaints of Bloody garo Stools. 03:39 This 41 yrs old Male presents to ER via Ambulatory with complaints of Bloody garo Stools. 03:39 The patient presents with abdominal pain. Onset: The symptoms/episode began/occurred 2 garo day(s) ago. Historical: - Allergies: 03:05 No Known Allergies; sj1 - Home Meds: 03:05 metoprolol tartrate 50 mg Oral tab 1 tab 2 times per day [Active]; Lisinopril Oral sj1 [Active]; - PMHx: 03:06 Hypertension; sj1 - PSHx: 03:06 None; sj1 - Immunization history:: Adult Immunizations unknown, Client reports having NOT received the Covid vaccine. - Social history:: Smoking status: Patient reports the use of cigarette tobacco products, smokes one-half pack cigarettes per day, Patient uses alcohol, but reports only rare drinking. Patient/guardian denies using street drugs. ROS: 03:44 Constitutional: Negative for fever, chills, and weight loss, Eyes: Negative for injury, garo pain, redness, and discharge, ENT: Negative for injury, pain, and discharge, Neck: Negative for injury, pain, and swelling, Cardiovascular: Negative for chest pain, palpitations, and edema, Respiratory: Negative for shortness of breath, cough, wheezing, and pleuritic chest pain, Back: Negative for injury and pain, : Negative for injury, bleeding, discharge, and swelling, MS/Extremity: Negative for injury and deformity, Skin: Negative for injury, rash, and discoloration, Neuro: Negative for headache, weakness, numbness, tingling, and seizure, Psych: Negative for depression, anxiety, suicide ideation, homicidal ideation, and hallucinations, Allergy/Immunology: Negative for hives, rash, and allergies, Endocrine: Negative for neck swelling, polydipsia, polyuria, polyphagia, and marked weight changes, Hematologic/Lymphatic: Negative for swollen nodes, abnormal bleeding, and unusual bruising. 03:44 Abdomen/GI: Positive for rectal bleeding. Exam: 03:44 Constitutional: This is a well developed, well nourished patient who is awake, alert, garo and in no acute distress. Head/Face: Normocephalic, atraumatic. Eyes: Pupils equal round and reactive to light, extra-ocular motions intact. Lids and lashes normal. Conjunctiva and sclera are non-icteric and not injected. Cornea within normal limits. Periorbital areas with no swelling, redness, or edema. ENT: Nares patent. No nasal discharge, no septal abnormalities noted. Tympanic membranes are normal and external auditory canals are clear. Oropharynx with no redness, swelling, or masses, exudates, or evidence of obstruction, uvula midline. Mucous membranes moist. Neck: Trachea midline, no thyromegaly or masses palpated, and no cervical lymphadenopathy. Supple, full range of motion without nuchal rigidity, or vertebral point tenderness. No Meningismus. Chest/axilla: Normal chest wall appearance and motion. Nontender with no deformity. No lesions are appreciated. Cardiovascular: Regular rate and rhythm with a normal S1 and S2. No gallops, murmurs, or rubs. Normal PMI, no JVD. No pulse deficits. Respiratory: Lungs have equal breath sounds bilaterally, clear to auscultation and percussion. No rales, rhonchi or wheezes noted. No increased work of breathing, no retractions or nasal flaring. Back: No spinal tenderness. No costovertebral tenderness. Full range of motion. Male : Normal genitalia with no discharge or lesions. Skin: Warm, dry with normal turgor. Normal color with no rashes, no lesions, and no evidence of cellulitis. MS/ Extremity: Pulses equal, no cyanosis. Neurovascular intact. Full, normal range of motion. Neuro: Awake and alert, GCS 15, oriented to person, place, time, and situation. Cranial nerves II-XII grossly intact. Motor strength 5/5 in all extremities. Sensory grossly intact. Cerebellar exam normal. Normal gait. Psych: Awake, alert, with orientation to person, place and time. Behavior, mood, and affect are within normal limits. 03:44 Abdomen/GI: Inspection: abdomen appears normal, Bowel sounds: normal, Palpation: abdomen is soft and non-tender, Rectal exam: Prostate: normal, rectal tone normal, Stool: guaiac positive, hemorrhoid(s), are not appreciated, mass, is not appreciated, swelling, is not appreciated, tenderness, is not appreciated, Indicators: McBurney's point Liver: no appreciated palpable abnormalities, Hernia: not appreciated. Vital Signs: 03:01 BP 122 / 80; Pulse 95; Resp 18 S; Temp 98.3; Pulse Ox 97% on R/A; Weight 156.49 kg (R); sj1 Height 6 ft. 3 in. (190.50 cm); Pain 0/10; 06:55 BP 118 / 79; Pulse 82; Resp 18; Pulse Ox 95% ; lh3 03:01 Body Mass Index 43.12 (156.49 kg, 190.50 cm) sj1 MDM: 03:28 Patient medically screened. [facility] 05:17 Differential diagnosis: AAA, acute coronary syndrome, coronary artery disease, garo Cholelithiasis, non-specific abd pain, pancreatitis, Ureterolithiasis. Data reviewed: vital signs, nurses notes, lab test result(s), radiologic studies, CT scan. Data interpreted: supervisor microfilm duplicating unit: rate is 95 beats/min, rhythm is regular, Pulse oximetry: on room air is 97 %. Test interpretation: by ED physician or midlevel provider: ECG, plain radiologic studies. Counseling: I had a detailed discussion with the patient and/or guardian regarding: the historical points, exam findings, and any diagnostic results supporting the discharge/admit diagnosis, lab results, radiology results, the need for outpatient follow up, for definitive care, a family practitioner, a inventory control manager. 04/04 06:34 Order name: Basic Metabolic Panel [facility] 04/04 06:34 Order name: Liver (Hepatic) Function [facility] 04/04 06:34 Order name: Troponin (Emerg Dept Use Only) [facility] 04/04 06:34 Order name: NT PRO-BNP [facility] 04/04 03:17 Order name: XRAY Chest (1 view) [facility] 04/04 03:17 Order name: EKG; Complete Time: 16:49 [facility] 04/04 03:17 Order name: Cardiac monitoring [facility] 04/04 03:17 Order name: EKG - Nurse/Tech [facility] 04/04 03:17 Order name: IV Saline Lock; Complete Time: 04:12 [facility] 04/04 03:17 Order name: CT Abd/Pelvis - IV Contrast Only [facility] 04/04 06:34 Order name: Magnesium [facility] 04/04 06:34 Order name: Lipase [facility] 04/04 06:34 Order name: Protime (+INR) [facility] 04/04 06:48 Order name: CBC with Automated Diff [facility] 04/04 03:17 Order name: Labs collected and sent; Complete Time: 04:12 [facility] 04/04 03:17 Order name: O2 Per Protocol; Complete Time: 04:12 [facility] 04/04 03:17 Order name: O2 Sat Monitoring; Complete Time: 04:12 [facility] Administered Medications: 04:11 Drug: NS 0.9% 500 ml Route: IV; Rate: bolus; Site: right antecubital; lh3 05:37 CANCELLED (Duplicate Order): Rocephin (cefTRIAXone) 2 grams IV at per protocol once; garo Given slow IV push per pharmarcy instructions 06:44 Drug: Rocephin (cefTRIAXone) 1 grams {Note: Administered by on previous shift by sl2 Citlali Walter RN, previous entry cancelled in error.} Route: IV; Rate: per protocol; Site: right antecubital; 07:20 Follow up: Response: No adverse reaction; IV Status: Completed infusion; IV Intake: sl2 100ml Disposition Summary: 04/04/21 07:13 Discharge Ordered Location: Home garo Problem: new garo Symptoms: have improved garo Condition: Stable garo Diagnosis - GI Bleed/ Gastrointestinal hemorrhage, unspecified - lower garo Followup: garo - With: Private Physician - When: 2 - 3 days - Reason: Recheck today's complaints, Continuance of care, Re-evaluation by your physician Followup: garo - With: - When: 2 - 3 days - Reason: Recheck today's complaints, Continuance of care, Re-evaluation by your physician Discharge Instructions: - Discharge Summary Sheet garo - Gastrointestinal Bleeding garo - Rectal Bleeding garo - Rectal Bleeding, Prli-li-[id number] garo - Lower Gastrointestinal Bleeding garo Forms: - Medication Reconciliation Form garo - Thank You Letter garo - Antibiotic Education garo - Prescription Opioid Use garo - Work release form bd Prescriptions: - Colace 100 mg Oral Tablet - take 1 tablet by ORAL route every 12 hours; 14 tablet; Refills: 0, Product [facility] Selection Permitted - Flagyl 500 mg Oral Tablet - take 1 tablet by ORAL route every 6 hours for 7 days; 28 tablet; Refills: 0, [facility] Product Selection Permitted - Cipro 500 mg Oral Tablet - take 1 tablet by ORAL route every 12 hours for 7 days; 14 tablet; Refills: 0, [facility] Product Selection Permitted Signatures: Dispatcher [employer] David Lynn MD MD cha Hardee, Latisha RN RN lh3 Bambi Rodas RN RN sj1 Anai Garcia RN RN sl2 Corrections: (The following items were deleted from the chart) 05:37 05:35 Rocephin (cefTRIAXone) 2 grams IV at per protocol once; Given slow IV push per [facility] pharmarcy instructions ordered. [facility]
--- NOTE | 2021-04-04 07:13 | ER ---
Nurse's Notes [facility] Name: Aime Robbins Age: 41 yrs Sex: Male : 1980 Arrival Date: 04/04/2021 Time: 02:43 Bed 20 Private MD: Diagnosis: GI Bleed/ Gastrointestinal hemorrhage, unspecified-lower Presentation: 04/04 03:01 Chief complaint: Patient states: reports intermittent dark blood in stool x 4 days, sj1 Denies thinners, abd pain, nausea, vomiting, diarrhea. Coronavirus screen: Vaccine status: Patient reports being unvaccinated. Ebola Screen: No symptoms or risks identified at this time. Initial Sepsis Screen: Does the patient meet any 2 criteria? No. Patient's initial sepsis screen is negative. Does the patient have a suspected source of infection? No. Patient's initial sepsis screen is negative. Risk Assessment: Do you want to hurt yourself or someone else? Patient reports no desire to harm self or others. Onset of symptoms was March 31, 2021. 03:01 Method Of Arrival: Ambulatory [facility] 03:01 Acuity: DADA 3 sj1 Triage Assessment: 03:06 General: Appears in no apparent distress. Behavior is calm, cooperative, appropriate sj1 for age. Pain: Denies pain. EENT: No signs and/or symptoms were reported regarding the EENT system. Neuro: Level of Consciousness is awake, alert, obeys commands, Oriented to person, place, time, situation. Cardiovascular: No deficits noted. Respiratory: No deficits noted. GI: Reports rectal bleeding. : No signs and/or symptoms were reported regarding the genitourinary system. Derm: No signs and/or symptoms reported regarding the dermatologic system. Musculoskeletal: No signs and/or symptoms reported regarding the musculoskeletal system. Historical: - Allergies: 03:05 No Known Allergies; sj1 - Home Meds: 03:05 metoprolol tartrate 50 mg Oral tab 1 tab 2 times per day [Active]; Lisinopril Oral sj1 [Active]; - PMHx: 03:06 Hypertension; sj1 - PSHx: 03:06 None; sj1 - Immunization history:: Adult Immunizations unknown, Client reports having NOT received the Covid vaccine. - Social history:: Smoking status: Patient reports the use of cigarette tobacco products, smokes one-half pack cigarettes per day, Patient uses alcohol, but reports only rare drinking. Patient/guardian denies using street drugs. Screenin:07 Abuse screen: Denies threats or abuse. Denies injuries from another. Nutritional sj1 screening: No deficits noted. Tuberculosis screening: No symptoms or risk factors identified. Fall Risk None identified. Assessment: 04:23 General: Appears in no apparent distress. Behavior is calm, cooperative, appropriate lh3 for age. GI: Reports constipation, bloody stool, tolerance of fluids, tolerance of food. 04:45 Reassessment: Patient appears in no apparent distress at this time. No changes from 3 previously documented assessment. Patient and/or family updated on plan of care and expected duration. Pain level reassessed. Patient is alert, oriented x 3, equal unlabored respirations, skin warm/dry/pink. Discussed with ER to do IV, Labs, CT and hold other orders at this time. Vital Signs: 03:01 BP 122 / 80; Pulse 95; Resp 18 S; Temp 98.3; Pulse Ox 97% on R/A; Weight 156.49 kg (R); sj1 Height 6 ft. 3 in. (190.50 cm); Pain 0/10; 06:55 BP 118 / 79; Pulse 82; Resp 18; Pulse Ox 95% ; lh3 03:01 Body Mass Index 43.12 (156.49 kg, 190.50 cm) [facility] ED Course: 02:43 Patient arrived in ED. 03:05 Triage completed. 1 03:06 Arm band placed on left wrist. 1 03:07 Patient has correct armband on for positive identification. Bed in low position. Call [facility] light in reach. 03:13 David Cleveland MD is Attending Physician. garo 03:22 Citlali Chaidez, WENDY is Primary Nurse. 3 04:23 No provider procedures requiring assistance completed. Inserted saline lock: 20 gauge lh3 in right antecubital area, using aseptic technique. Blood collected. 07:13 Angelica De Luna MD is Referral Physician. garo 07:42 IV discontinued. sl2 Administered Medications: 04:11 Drug: NS 0.9% 500 ml Route: IV; Rate: bolus; Site: right antecubital; 3 05:37 CANCELLED (Duplicate Order): Rocephin (cefTRIAXone) 2 grams IV at per protocol once; garo Given slow IV push per pharmarcy instructions 06:44 Drug: Rocephin (cefTRIAXone) 1 grams {Note: Administered by on previous shift by sl2 Citlali Walter RN, previous entry cancelled in error.} Route: IV; Rate: per protocol; Site: right antecubital; 07:20 Follow up: Response: No adverse reaction; IV Status: Completed infusion; IV Intake: sl2 100ml Intake: 07:20 IV: 100ml; Total: 100ml. sl2 07:45 IV: 100ml; Total: 200ml. sl2 Outcome: 07:13 Discharge ordered by . garo 07:39 Discharged to home ambulatory. sl2 07:39 Condition: stable 07:39 Discharge instructions given to patient, Instructed on discharge instructions, follow up and referral plans. no drinking with medication, medication usage, Demonstrated understanding of instructions, follow-up care, Prescriptions given X 3. 07:44 Patient left the ED. sl2 Signatures: David Cleveland MD MD cha Marsh, Wendy Citlali Chaidez, WENDY RN 3 Bambi Rodas, WENDY RN sj1 Anai Garcia, WENDY RN sl2 Corrections: (The following items were deleted from the chart) 07:52 07:51 Response: No adverse reaction; IV Status: Completed infusion; IV Intake: 100ml sl2sl2
[2021-04-04 07:54] VITALS: TEMP 98.3
[2021-04-04 07:56] VITALS: BP 118/79; O2SAT 95
--- NOTE | 2021-04-04 13:31 | RAD REPORT ---
EXAM DESCRIPTION: CT - Abdomen Pelvis W Contrast - 04/04/2021 7:42 am CLINICAL HISTORY: ABD PAIN COMPARISON: None. TECHNIQUE: CT ABDOMEN PELVIS WITH IV CONTRAST on 04/04/2021 5:59 AM CDT This exam was performed according to our departmental dose-optimization program, which includes autom ated exposure control, adjustment of the mA and/or kV according to patient size and/or use of iterati ve reconstruction technique. FINDINGS: Lower lungs are clear. Abdomen: The liver is normal in appearance. There is no biliary dilatation. Gallbladder is decompress ed. The pancreas and spleen are normal in appearance. The adrenal glands and kidneys are unremarkable . Abdominal aorta is normal in course and caliber without aneurysm. There is no free air. There is no r etroperitoneal adenopathy. Pelvis: There is no bowel obstruction. Urinary bladder is unremarkable. There is no free fluid. Appen zena is normal. Skeleton: There are no acute osseous findings. No suspicious bony lesions. IMPRESSION: No acute inflammatory process. No renal or ureteral calculi. Electronically signed by: Abdiel Isbell MD 04/04/2021 6:51 AM CDT Due to temporary technical issues with the PACS/Fluency reporting system, reports are being signed by the in house radiologists without review as a courtesy to insure prompt reporting. The interpreting radiologist is fully responsible for the content of the report.
== END 2021-04-04 07:44 | disposition home or self-care (01) ==
LOC: ER 02:35
DX: K92.2 Gastrointestinal hemorrhage, unspecified (principal); I10 Essential (primary) hypertension; F17.210 Nicotine dependence, cigarettes, uncomplicated
CPT/HCPCS: 96365; 85025; 80048; 36415; 83735; 85610; 80076; 84484; 83690; 83880; 74177; 99284; Q9967; J7040

== ENCOUNTER 2021-06-04 00:29 | Emergency (ER) | payer OTHER ==
--- OUTSIDE RECORDS SUMMARY | 2021-06-04 00:32 | XMS REPORT | Continuity of Care Document ---
:1980 Author Organization [facility] t Address [address] [place] [address] Care Team Providers Name Role Phone Unavailable Unavailable Unavailable Problems This patient has no known problems. Allergies, Adverse Reactions, Alerts This patient has no known allergies or adverse reactions. Medications Ordered Filled Start Stop Current Ordering Indication Dosage Frequency Signature Comments Components Source Medication Medication Date Date Medication? Clinician (SIG) Name Name Lisinopril Lisinopril Yes Na Franklin [address] [facility]ics Metoprolol Metoprolol Yes Na Franklin [address] [facility] Tartrate Tartrate with food Diane kes - [facility] ent Clinics Hydrochloro Hydrochloro Yes Na Franklin [address] [facility] thiazide thiazide in the [facility] ent Clinics Lisinopril- Lisinopril- Yes Na Franklin [address] [facility] Hydrochloro Hydrochloro L ukes - thiazide thiazide [facility] ent Clinics Procedures This patient has no known procedures. Encounters Start End Encounter Admission Attending Care Care Encounter Source Date/Time Date/Time Type Type Clinicians Facility Department ID 2021-01-25 2021-01-[address] [facility] [id number] [facility] 2021-01-25 2021-01-[address] [facility] [id number] [facility] 2020-09-05 2020-09-05 [facility] [id number] [facility] 2020-06-19 2020-06-19 [facility] [id number] [facility] 2020-04-14 2020-04-14 [facility] [id number] [facility] 2019-12-24 2019-12-24 Outpatient Deana Trent [id number] [facility] 16[facility]00 [facility] 2019-12-03 2019-12-03 Outpatient Deana Trent [id number] [facility] 15:20[facility] 15:20:00 [facility] Results This patient has no known results.
[2021-06-04 01:46] LABS: Absolute Lymphocytes (CBC) 2.5 K/uL (0.7-4.9); Hematocrit 49.1 % (39.6-49.0); Lymphocytes % 25.9 % (15.3-44.8); MPV 8.8 fL (7.6-11.3); RBC Red Blood Cell Count 5.63 M/uL (4.33-5.43)
[2021-06-04 01:54] LABS: Protime INR 0.95
[2021-06-04 02:11] LABS: ALT/SGPT 50 U/L (12-78); AST/SGOT 18 U/L (15-37); Albumin 3.8 g/dL (3.4-5.0); Alkaline Phosphatase 90 U/L (45-117); BUN Blood Urea Nitrogen 16 mg/dL (7-18); Bicarbonate 28 mmol/L (21-32); Bilirubin Direct 0.2 mg/dL (0-0.2); Bilirubin Total 0.5 mg/dL (0.2-1.0); Glucose Level 296 mg/dL (74-106); Magnesium 2.3 mg/dL (1.8-2.4); NT PRO-BNP 20 pg/mL (<125); Potassium 3.6 mmol/L (3.5-5.1); Protein, Total 7.8 g/dL (6.4-8.2); Sodium Level 135 mmol/L (136-145); Troponin (Emerg Dept Use Only) < 0.02 ng/mL (0.0-0.045)
--- NOTE | 2021-06-04 07:35 | RAD REPORT ---
EXAM DESCRIPTION: CT - Chest For Pe Angio - 06/04/2021 4:56 am CLINICAL HISTORY: CHEST PAIN COMPARISON: Chest Single View dated 06/04/2021 TECHNIQUE: Dynamically enhanced 3 mm thick images of the chest were obtained during administration o f approximately 150mL Isovue 370 IV contrast. Coronal and oblique MIP reconstruction images were gene rated and reviewed. Exam utilizes a protocol to evaluate the pulmonary arterial tree. All CT scans are performed using dose optimization technique as appropriate and may include automated exposure control or mA/KV adjustment according to patient size. FINDINGS: No pulmonary emboli are identified. The aorta as imaged shows no acute or suspicious finding. No pericardial thickening or effusion. No infiltrate or mass in the lung parenchyma. Minimal atelectasis in the lung parenchyma. No pleural effusion or pleural thickening. No mediastinal or hilar suspicious masses. No chest wall masses or abnormal axillary lymphadenopathy. Right lobe of the thyroid gland is prominent in size and may contain an isodense nodule. Follow-up t hyroid sonography can be performed as an outpatient as clinical findings warrant. Partially imaged li jax shows attenuation indicating fatty infiltration. IMPRESSION: No pulmonary emboli identified. No acute or suspicious findings in the lung parenchyma. Suspected right thyroid nodule. Follow-up thyroid sonography can be performed as an outpatient as cli nical findings warrant. Fatty infiltration of a partially imaged liver.
--- NOTE | 2021-06-04 07:48 | EDPHYS ---
Physician Documentation [facility] Name: Aime Robbins Age: 41 yrs Sex: Male : 1980 Arrival Date: 06/04/2021 Time: 00:33 Bed 4 Private MD: ED Physician Edgardo Monreal HPI: 06/04 04:22 This 41 yrs old Male presents to ER via Ambulatory with complaints of Chest Pain > 30 pkl y/o. 04:22 The patient or guardian reports chest pain that is located primarily in the substernal pkl area. Onset: just prior to arrival, 3 hour(s) ago. The pain radiates to the left arm, back. Associated signs and symptoms: The patient has no apparent associated signs or symptoms. The chest pain is described as dull. Historical: - Allergies: 01: No Known Allergies; iw - Home Meds: :21 lisinopril 20 mg oral tab once daily [Active]; metoprolol tartrate 50 mg Oral tab 1 tab iw 2 times per day [Active]; - PMHx: 01: Hypertension; iw - PSHx: 01:21 None; iw - Immunization history:: Client reports having NOT received the Covid vaccine. - Social history:: Smoking status: Patient reports the use of cigarette tobacco products, smokes one-half pack cigarettes per day. ROS: 04:22 Eyes: Negative for injury, pain, redness, and discharge, ENT: Negative for injury, pkl pain, and discharge, Neck: Negative for injury, pain, and swelling. 04:22 Cardiovascular: Positive for chest pain. 04:22 Respiratory: Negative for cough, shortness of breath. 04:22 Abdomen/GI: Negative for abdominal pain, nausea, vomiting, and diarrhea. 04:22 Back: Negative for acute changes. 04:22 : Negative for urinary symptoms. 04:22 MS/extremity: Negative for acute changes. 04:22 Skin: Negative for rash. 04:22 Neuro: Negative for altered mental status, loss of consciousness. Exam: 04:22 Head/Face: Normocephalic, atraumatic. Eyes: Pupils equal round and reactive to light, pkl extra-ocular motions intact. Lids and lashes normal. Conjunctiva and sclera are non-icteric and not injected. Cornea within normal limits. Periorbital areas with no swelling, redness, or edema. ENT: Nares patent. No nasal discharge, no septal abnormalities noted. Tympanic membranes are normal and external auditory canals are clear. Oropharynx with no redness, swelling, or masses, exudates, or evidence of obstruction, uvula midline. Mucous membranes moist. Neck: Trachea midline, no thyromegaly or masses palpated, and no cervical lymphadenopathy. Supple, full range of motion without nuchal rigidity, or vertebral point tenderness. No Meningismus. Chest/axilla: Normal chest wall appearance and motion. Nontender with no deformity. No lesions are appreciated. Cardiovascular: Regular rate and rhythm with a normal S1 and S2. No gallops, murmurs, or rubs. Normal PMI, no JVD. No pulse deficits. Respiratory: Lungs have equal breath sounds bilaterally, clear to auscultation and percussion. No rales, rhonchi or wheezes noted. No increased work of breathing, no retractions or nasal flaring. Abdomen/GI: Soft, non-tender, with normal bowel sounds. No distension or tympany. No guarding or rebound. No evidence of tenderness throughout. Back: No spinal tenderness. No costovertebral tenderness. Full range of motion. Skin: Warm, dry with normal turgor. Normal color with no rashes, no lesions, and no evidence of cellulitis. MS/ Extremity: Pulses equal, no cyanosis. Neurovascular intact. Full, normal range of motion. Neuro: Awake and alert, GCS 15, oriented to person, place, time, and situation. Cranial nerves II-XII grossly intact. Motor strength 5/5 in all extremities. Sensory grossly intact. Cerebellar exam normal. Normal gait. Vital Signs: 01:20 Pulse 82; Resp 18; Temp 97.4; Pulse Ox 97% on R/A; Weight 156.49 kg; Height 6 ft. 3 in. iw (190.50 cm); 01:22 BP 109 / 95; iw 03:53 BP 109 / 79; Pulse 77; Resp 11; Temp 98.4; Pulse Ox 99% 0 lpm ; sv1 06:18 BP 111 / 77; Pulse 87; Resp 13; Pulse Ox 93% 0 lpm ; sv1 07:30 BP 104 / 79; Pulse 75; Resp 17; Pulse Ox 95% on R/A; jg9 01:20 Body Mass Index 43.12 (156.49 kg, 190.50 cm) MDM: 02:59 Patient medically screened. pkl 07:38 Data reviewed: vital signs, nurses notes, lab test result(s), EKG, radiologic studies, pkl CT scan, plain films. ED course: Patient feeling better. Discussed lab, EKG and imaging with patient. Patient does not want to be admitted for further evaluations. Advised to follow up with PCP ( Dr. Franklin ) for diabetes management and Dr. Barker ( Film Drying Machine Operator ) for cardiac evaluations in 2 to 3 days. To return if necessary. Patient understood instructions. 06/04 01:23 Order name: Basic Metabolic Panel 06/04 01:23 Order name: CBC with Diff; Complete Time: 03:00 06/04 01:23 Order name: LFT's 06/04 01:23 Order name: Magnesium; Complete Time: 03:00 06/04 01:23 Order name: NT PRO-BNP; Complete Time: 03:00 06/04 01:23 Order name: PT-INR; Complete Time: 03:00 06/04 01:23 Order name: Troponin (emerg Dept Use Only); Complete Time: 03:00 06/04 01:23 Order name: XRAY Chest (1 view) 06/04 01:23 Order name: Basic Metabolic Panel; Complete Time: 03:00 EDDC 06/04 01:23 Order name: Liver (Hepatic) Function; Complete Time: 03:00 EDDC 06/04 03:06 Order name: D-Dimer [facility] 06/04 03:06 Order name: Troponin (emerg Dept Use Only) [facility] 06/04 03:07 Order name: D-Dimer; Complete Time: 03:48 EDDC 06/04 03:07 Order name: Troponin (Emerg Dept Use Only); Complete Time: 04:20 EDDC 06/04 01:23 Order name: EKG; Complete Time: 01:24 06/04 01:23 Order name: Cardiac monitoring; Complete Time: 07:17 06/04 01:23 Order name: EKG - Nurse/Tech; Complete Time: 01:54 06/04 01:23 Order name: IV Saline Lock; Complete Time: 01:55 06/04 01:23 Order name: Labs collected and sent; Complete Time: 01:55 iw 06/04 01:23 Order name: O2 Per Protocol; Complete Time: 03:01 iw 06/04 01:23 Order name: O2 Sat Monitoring; Complete Time: 03:01 iw 06/04 03:06 Order name: EKG; Complete Time: 03:07 pkl 06/04 03:50 Order name: CT Chest For PE Angio; Complete Time: 07:36 pkl Administered Medications: No medications were administered Disposition Summary: 06/04/21 07:47 Discharge Ordered Location: Home pkl Problem: new pkl Symptoms: have improved pkl Condition: Stable pkl Diagnosis - Chest pain. Diabetes pkl Followup: pkl - With: Cosmo Barker MD - When: 2 - 3 days - Reason: Re-evaluation by your physician Forms: - Medication Reconciliation Form pkl - Thank You Letter pkl - Antibiotic Education pkl - Prescription Opioid Use pkl Signatures: Dispatcher [employer] EDEdgardo Yang MD MD pkl Ericka Menendez, RN RN iw
--- NOTE | 2021-06-04 07:48 | ER ---
Nurse's Notes [facility] Name: Aime Robbins Age: 41 yrs Sex: Male : 1980 Arrival Date: 06/04/2021 Time: 00:33 Bed 4 Private MD: Diagnosis: Chest pain. Diabetes Presentation: 06/04 01:20 Chief complaint: Patient states: upper chest pain into his left arm and back , started iw 3 hours ago, denies n/v or SOB. Coronavirus screen: At this time, the client does not indicate any symptoms associated with coronavirus-19. Ebola Screen: Patient negative for fever greater than or equal to 101.5 degrees Fahrenheit, and additional compatible Ebola Virus Disease symptoms Patient denies exposure to infectious person. Patient denies travel to an Ebola-affected area in the 21 days before illness onset. No symptoms or risks identified at this time. Initial Sepsis Screen: Does the patient meet any 2 criteria? No. Patient's initial sepsis screen is negative. Does the patient have a suspected source of infection? No. Patient's initial sepsis screen is negative. Risk Assessment: Do you want to hurt yourself or someone else? Patient reports no desire to harm self or others. Onset of symptoms was June 04, 2021. 01:20 Method Of Arrival: Ambulatory iw 01:20 Acuity: DADA 3 iw Triage Assessment: 06:21 General: Appears in no apparent distress. Pain: Denies pain. sv1 07:52 General: Behavior is calm. jg9 Historical: - Allergies: 01:21 No Known Allergies; iw - Home Meds: 01:21 lisinopril 20 mg oral tab once daily [Active]; metoprolol tartrate 50 mg Oral tab 1 tab iw 2 times per day [Active]; - PMHx: 01:21 Hypertension; iw - PSHx: 01:21 None; iw - Immunization history:: Client reports having NOT received the Covid vaccine. - Social history:: Smoking status: Patient reports the use of cigarette tobacco products, smokes one-half pack cigarettes per day. Screenin:54 Abuse screen: none. Nutritional screening: No deficits noted. Tuberculosis screening: sv1 No symptoms or risk factors identified. Fall Risk None identified. Assessment: 03:54 Pain: Pain does not radiate. Pain began gradually, 4 hours ago. Cardiovascular: Reports sv1 chest pain. 07:52 Reassessment: Patient appears in no apparent distress at this time. Patient and/or jg9 family updated on plan of care and expected duration. Pain level reassessed. Patient is alert, oriented x 3, equal unlabored respirations, skin warm/dry/pink. Vital Signs: 01:20 Pulse 82; Resp 18; Temp 97.4; Pulse Ox 97% on R/A; Weight 156.49 kg; Height 6 ft. 3 in. iw (190.50 cm); 01:22 BP 109 / 95; iw 03:53 BP 109 / 79; Pulse 77; Resp 11; Temp 98.4; Pulse Ox 99% 0 lpm ; sv1 06:18 BP 111 / 77; Pulse 87; Resp 13; Pulse Ox 93% 0 lpm ; sv1 07:30 BP 104 / 79; Pulse 75; Resp 17; Pulse Ox 95% on R/A; jg9 01:20 Body Mass Index 43.12 (156.49 kg, 190.50 cm) iw ED Course: 00:33 Patient arrived in ED. bp1 01:21 Triage completed. iw 01:45 Initial lab(s) drawn, by me, sent to lab. Inserted saline lock: 20 gauge in right kj1 antecubital area, using aseptic technique. Blood collected. 01:47 XRAY Chest (1 view) In Process Unspecified. EDMS 01:50 EKG done, by ED staff, reviewed by Edgardo Monreal MD. tt3 02:59 Edgardo Monreal MD is Attending Physician. pkl 03:29 Supa Ling, RN is Primary Nurse. sv1 03:30 Troponin (Emerg Dept Use Only) Sent. sv1 03:30 D-Dimer Sent. sv1 03:30 Troponin (emerg Dept Use Only) Sent. sv1 03:30 D-Dimer Sent. sv1 03:53 Arm band placed on right wrist. sv1 03:54 Patient has correct armband on for positive identification. Bed in low position. Call sv1 light in reach. Side rails up X2. monitoring manager on. Pulse ox on. NIBP on. 04:56 CT Chest For PE Angio In Process Unspecified. EDMS 06:22 Patient maintains SpO2 saturation greater than 95% on room air. sv1 07:17 Basic Metabolic Panel Sent. jg9 07:17 LFT's Sent. jg9 07:47 Cosmo Barker MD is Referral Physician. pkl 07:52 No provider procedures requiring assistance completed. jg9 07:53 IV discontinued. jg9 Administered Medications: No medications were administered Outcome: 07:47 Discharge ordered by MD. pkl 07:53 Discharged to home ambulatory. jg9 07:53 Condition: stable 07:53 Discharge instructions given to patient, Instructed on discharge instructions, follow up and referral plans. Demonstrated understanding of instructions, follow-up care. 07:54 Patient left the ED. jg9 Signatures: Dispatcher [employer] EDMS Edgardo Monreal MD MD pkl Ericka Menendez, RN RN iw Katt Constantino kj1 Yris Del Castillo Tyler tt3 Letty Do jg9 Supa Ling RN RN sv1
[2021-06-04 08:04] VITALS: TEMP 98.4
[2021-06-04 08:07] VITALS: BP 104/79; O2SAT 95
--- NOTE | 2021-06-04 08:32 | RAD REPORT ---
EXAM DESCRIPTION: RAD - Chest Single View - 06/04/2021 1:47 am CLINICAL HISTORY: CHEST PAIN COMPARISON: October 2019 TECHNIQUE: AP portable chest image was obtained 06/04/2021 1:47 am . FINDINGS: Lungs are clear. Heart and vasculature are normal. No measurable pleural effusion and no p neumothorax. No acute bony abnormality seen. No acute aortic findings suspected. IMPRESSION: No acute cardiopulmonary process. No significant change from comparison study.
== END 2021-06-04 07:54 | disposition home or self-care (01) ==
LOC: ER 00:29
DX: R07.9 Chest pain, unspecified (principal); E11.9 Type 2 diabetes mellitus without complications; I10 Essential (primary) hypertension; F17.210 Nicotine dependence, cigarettes, uncomplicated
CPT/HCPCS: 93005 ×2; 85025; 80048; 36415; 83735; 85610; 85379; 80076; 84484 ×2; 83880; 71275; 71045; 99285; Q9967